=== PATIENT | female | born 1995 | race Caucasian/White ===

== ENCOUNTER 2016-10-27 18:23 | Emergency (ER) | payer BC ==
--- NOTE | 2016-10-27 18:40 | ER Document Report ---
ED Medical Screen (RME) - General Stated Complaint: POSSIBLE OVERDOSE Mode of Arrival: Wheelchair Information source: Parent Notes: Patient reports taking Xanax tablets throughout the day. Patient states that she took like 7 tablets. Patient unsure of the milligrams. The prescription was the patient's or anyone in their family. Patient got the bottle from somebody at school. Mother states that patient wrote a suicide note stating that she was sorry and that she could not do this anymore. Patient does admit to suicidal ideation. hx: Spinal stenosis I have greeted and performed a rapid initial assessment of this patient. A comprehensive ED assessment and evaluation of the patient, analysis of test results and completion of the medical decision making process will be conducted by additional ED providers. Physical Exam - Vital signs Vitals: Temp Pulse Resp BP Pulse Ox 98.2 F 97 30 H 112/71 97 10/27/16 18:33 10/27/16 18:33 10/27/16 18:33 10/27/16 18:33 10/27/16 18:33 - General General appearance: Lethargic Notes: Patient able to answer questions, patient resting with eyes closed, answers for vocal stimuli Course - Vital Signs Vital signs: Temp Pulse Resp BP Pulse Ox 98.2 F 97 30 H 112/71 97 10/27/16 18:33 10/27/16 18:33 10/27/16 18:33 10/27/16 18:33 10/27/16 18:33
[2016-10-27 19:26] LABS: ABSOLUTE EOSINOPHILS # (AUTO) 0.1 10^3/uL (0.0-0.6); ABSOLUTE LYMPHOCYTES (AUTO) 2.7 10^3/uL (0.5-4.7); ABSOLUTE MONOCYTES (AUTO) 0.4 10^3/uL (0.1-1.4); ABSOLUTE NEUT (AUTO) 3.8 10^3/uL (1.7-8.2); BASOPHILS % (AUTO) 0.7 % (0-2); EOSINOPHILS % (AUTO) 1.2 % (0-6); HEMOGLOBIN 12.6 g/dL (12.0-15.5); HGB HCT DIFFERENCE -0.2; LYMPHOCYTES % (AUTO) 38.4 % (13-45); MEAN CORPUSCULAR HEMOGLOBIN 26.7 pg (27.0-33.4); MEAN CORPUSCULAR HGB CONC 33.2 g/dL (32.0-36.0); MEAN CORPUSCULAR VOLUME 80 fl (80-97); MONOCYTES % (AUTO) 5.5 % (3-13); RED BLOOD COUNT 4.73 10^6/uL (3.72-5.28); SEGMENTED NEUTROPHILS % (AUTO) 54.2 % (42-78); WHITE BLOOD COUNT 6.9 10^3/uL (4.0-10.5)
[2016-10-27 19:58] LABS: ALANINE AMINOTRANSFERASE 26 U/L (9-52); ALBUMIN 4.6 g/dL (3.5-5.0); ALCOHOL 18 mg/dL (NONE DETECTED); ALKALINE PHOSPHATASE 87 U/L (38-126); ANION GAP 12 (5-19); ASPARTATE AMINO TRANSFERASE 28 U/L (14-36); BLOOD UREA NITROGEN 8 mg/dL (7-20); CALCIUM 9.6 mg/dL (8.4-10.2); CARBON DIOXIDE 26 mmol/L (22-30); CHLORIDE 103 mmol/L (98-107); CREATININE RESULT 0.72 mg/dL (0.52-1.25); GLUCOSE 142 mg/dL (75-110); POTASSIUM 3.8 mmol/L (3.6-5.0); SODIUM 141.2 mmol/L (137-145); TOTAL PROTEIN 7.6 g/dL (6.3-8.2)
--- NOTE | 2016-10-27 20:36 | ER Document Report ---
ED General - General Chief Complaint: Possible Overdose Stated Complaint: POSSIBLE OVERDOSE Mode of Arrival: Wheelchair Notes: Patient is a 21-year-old female with past medical history of depression who presents after trying to kill herself with an overdose of 14 mg of Xanax. She took this in conjunction with alcohol. States that her intent was to kill herself and that she is still suicidal at this time. Notes progressively worsening depression, anxiety and suicidality for the last several months but notes that she's had near daily suicidal thoughts for the past 1 year. States stress from school has worsened her symptoms. Nothing improves her symptoms. States she used to be on Lexapro several years ago but is not feeling improved her symptoms so she self discontinued it. She is not currently follow with a primary care physician or psychiatrist. TRAVEL OUTSIDE OF THE [place] IN LAST 30 DAYS: No - Related Data Allergies/Adverse Reactions: Sulfa (Sulfonamide Antibiotics) Allergy (Verified 10/28/16 01:22) Past Medical History - General Information source: Parent - Social History Smoking Status: Never Smoker Frequency of alcohol use: Occasional Drug Abuse: Prescription drugs Lives with: Alone Family History: Reviewed & Not Pertinent Patient has suicidal ideation: Yes Patient has homicidal ideation: No Renal/ Medical History: Denies: Hx Peritoneal Dialysis Psychiatric Medical History: Reports: Hx Depression - Immunizations Hx Diphtheria, Pertussis, Tetanus Vaccination: Yes Review of Systems - Review of Systems Notes: Constitutional: Negative for fever. HENT: Negative for sore throat. Eyes: Negative for visual changes. Cardiovascular: Negative for chest pain. Respiratory: Negative for shortness of breath. Gastrointestinal: Negative for abdominal pain, vomiting or diarrhea. Genitourinary: Negative for dysuria. Musculoskeletal: Negative for back pain. Skin: Negative for rash. Neurological: Negative for headaches, weakness or numbness. 10 point ROS negative except as marked above and in HPI. Physical Exam - Vital signs Vitals: Temp Pulse Resp BP Pulse Ox 98.2 F 97 30 H 112/71 97 10/27/16 18:33 10/27/16 18:33 10/27/16 18:33 10/27/16 18:33 10/27/16 18:33 Interpretation: Tachypneic Notes: PHYSICAL EXAMINATION: GENERAL: Appears intoxicated but in no distress. HEAD: Atraumatic, normocephalic. EYES: Pupils equal round and reactive to light, extraocular movements intact, sclera anicteric, conjunctiva are normal. ENT: nares patent, oropharynx clear without exudates. Moist mucous membranes. NECK: Normal range of motion, supple without lymphadenopathy LUNGS: Breath sounds clear to auscultation bilaterally and equal. No wheezes rales or rhonchi. HEART: Regular rate and rhythm without murmurs ABDOMEN: Soft, nontender, normoactive bowel sounds. No guarding, no rebound. No masses appreciated. EXTREMITIES: Normal range of motion, no pitting or edema. No cyanosis. NEUROLOGICAL: No focal neurological deficits. Moves all extremities spontaneously and on command. PSYCH: Tearful, poor eye contact, expressing si SKIN: Warm, Dry, normal turgor, no rashes or lesions noted. Course - Re-evaluation Re-evalutation: 10/27/16 20:34 Patient presents after a suicide attempt with 14 mg of Xanax and alcohol. Her airway is patent, vitals within normal limits at time of arrival. No respiratory suppression at this time. I am very concerned about this patient's baseline psychiatric condition as she admits to near daily suicidal ideation and has had 2 attempts in the past 10 days including a temperature she tried to strangle herself with a belt last week. I'm also concerned that she does not have any outpatient management, is not seeing a psychiatrist and is not any psychiatric medications. She acquired the Xanax from somebody else and was not actually prescribed this medication. Given the degree of her increasingly severe suicide attempt, untreated underlying depression, and the severity of her temp today I placed on involuntary commitment and feel she will likely need inpatient placement. Her medical screening laboratories and exam are otherwise unremarkable. Poison control contacted. She was placed on a radiation monitor. 10/28/16 03:00 Patient has remained asymptomatic beyond mild sedation. No distress. Medically cleared at this time. - Vital Signs Vital signs: Temp Pulse Resp BP Pulse Ox 98.2 F 97 30 H 112/71 97 10/27/16 18:33 10/27/16 18:33 10/27/16 18:33 10/27/16 18:33 10/27/16 18:33 - Laboratory Result Diagrams: 10/27/16 19:00 10/27/16 19:00 Laboratory results interpreted by me: 10/27/16 10/27/16 19:00 19:00 MCH 26.7 L Glucose 142 H Salicylates < 1.0 L Acetaminophen < 10 L - EKG Interpretation by Me Additional EKG results interpreted by me: 10/27/16 20:36 Normal sinus rhythm. Rate 97. No ST elevations or depressions. QTC 442. Discharge - Discharge Clinical Impression: Attempted suicide Benzodiazepine overdose Qualifiers: Encounter type: initial encounter Injury intent: intentional self-harm Qualified Code(s): T42.4X2A - Poisoning by benzodiazepines, intentional self- harm, initial encounter Condition: Fair Disposition: PSYCH HOSP/UNIT
[2016-10-27 23:18] LABS: APPEARANCE,URINE CLEAR; BILIRUBIN,URINE NEGATIVE (NEGATIVE); GLUCOSE, URINE NEGATIVE (NEGATIVE); KETONES,URINE NEGATIVE (NEGATIVE); LEUKOCYTE ESTERASE,URINE NEGATIVE (NEGATIVE); NITRITE,URINE NEGATIVE (NEGATIVE); PROTEIN,URINE NEGATIVE (NEGATIVE); URINE SPECIFIC GRAVITY 1.006; UROBILINOGEN,URINE NEGATIVE mg/dL (<2.0)
[2016-10-27 23:29] LABS: URINE BARBITURATES SCREEN NEGATIVE; URINE METHADONE SCREEN NEGATIVE; URINE OPIATES LOW NEGATIVE; URINE PHENCYCLIDINE SCREEN NEGATIVE
--- NOTE | 2016-10-28 08:02 | EKG REPORT ---
SEVERITY:- NORMAL ECG - SINUS RHYTHM : Confirmed by: Ramses Rodarte MD 28-Oct-2016 08:01:50
[2016-10-28 08:21] VITALS: BP 110/70
--- NOTE | 2016-10-28 10:19 | ER Document Report ---
Doctor's Note Notes: 10/28/16 10:17 Rounds: Chart reviewed and patient interviewed. Patient here for evaluation of suicidal thoughts. Patient has a history of depression and anxiety. Yesterday , took some Xanax pills as well as drinking alcohol. Still feels suicidal this morning. Vital signs are all normal. Lab studies show a blood alcohol of 18 and a drug screen positive for benzos. Patient's only medical condition is spinal stenosis which causes chronic back pain and for which she has been recommended surgery, but she does not have insurance coverage for that procedure. Patient appears to be medically stable for transfer or discharge. Ricardo Penaloza M.D.
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
== END 2016-10-28 14:05 ==
LOC: ER 18:23
DX: T42.4X2A Poisoning by benzodiazepines, intentional self-harm, initial encounter (principal); Z79.899 Other long term (current) drug therapy; X83.8XXA Intentional self-harm by other specified means, initial encounter
CPT/HCPCS: 36415; 80053; 80307; 81001; 84703; 85025; 93005; 93010; 99285

== ENCOUNTER 2017-11-29 18:27 | Emergency (ER) | payer BC ==
[2017-11-29 18:34] VITALS: BP 139/79
--- NOTE | 2017-11-29 20:02 | ER Document Report ---
ED Medical Screen (RME) - General Chief Complaint: Rectal Pain Stated Complaint: RECTUM ISSUES Time Seen by Provider: 11/29/17 20:01 Notes: Patient reports several days of rectal pain and bleeding. No significant lightheadedness or dizziness. She denies any known trauma. No recent pregnancies. TRAVEL OUTSIDE OF THE [place] IN LAST 30 DAYS: No - Related Data Allergies/Adverse Reactions: Sulfa (Sulfonamide Antibiotics) Allergy (Verified 11/29/17 18:29) Past Medical History Renal/ Medical History: Denies: Hx Peritoneal Dialysis Psychiatric Medical History: Reports: Hx Depression - Immunizations Hx Diphtheria, Pertussis, Tetanus Vaccination: Yes Physical Exam - Vital signs Vitals: Temp Pulse Resp BP Pulse Ox 98.6 F 105 H 17 139/79 H 100 11/29/17 18:33 11/29/17 18:33 11/29/17 18:33 11/29/17 18:33 11/29/17 18:33 Course - Vital Signs Vital signs: Temp Pulse Resp BP Pulse Ox 98.6 F 105 H 17 139/79 H 100 11/29/17 18:33 11/29/17 18:33 11/29/17 18:33 11/29/17 18:33 11/29/17 18:33
[2017-11-29 20:59] LABS: ABSOLUTE BASOPHILS # (AUTO) 0.1 10^3/uL (0.0-0.2); ABSOLUTE EOSINOPHILS # (AUTO) 0.1 10^3/uL (0.0-0.6); ABSOLUTE LYMPHOCYTES (AUTO) 3.5 10^3/uL (0.5-4.7); ABSOLUTE MONOCYTES (AUTO) 0.5 10^3/uL (0.1-1.4); ABSOLUTE NEUT (AUTO) 7.7 10^3/uL (1.7-8.2); BASOPHILS % (AUTO) 0.4 % (0-2); EOSINOPHILS % (AUTO) 0.6 % (0-6); HEMATOCRIT 33.1 % (36.0-47.0); HEMOGLOBIN 10.4 g/dL (12.0-15.5); LYMPHOCYTES % (AUTO) 29.4 % (13-45); MEAN CORPUSCULAR HEMOGLOBIN 19.6 pg (27.0-33.4); MEAN CORPUSCULAR HGB CONC 31.4 g/dL (32.0-36.0); MEAN CORPUSCULAR VOLUME 62 fl (80-97); MONOCYTES % (AUTO) 4.6 % (3-13); PLATELET COUNT 462 10^3/uL (150-450); RED BLOOD COUNT 5.32 10^6/uL (3.72-5.28); RED CELL DISTRIBUTION WIDTH 21.5 % (11.5-14.0); TOTAL CELLS COUNTED % (AUTO) 100 %; WHITE BLOOD COUNT 11.8 10^3/uL (4.0-10.5)
[2017-11-29 21:16] LABS: APPEARANCE,URINE CLOUDY; BILIRUBIN,URINE NEGATIVE (NEGATIVE); COLOR,URINE YELLOW; GLUCOSE, URINE NEGATIVE (NEGATIVE); KETONES,URINE NEGATIVE (NEGATIVE); LEUKOCYTE ESTERASE,URINE TRACE (NEGATIVE); NITRITE,URINE POSITIVE (NEGATIVE); PROTEIN,URINE NEGATIVE (NEGATIVE); URINE SPECIFIC GRAVITY 1.025; UROBILINOGEN,URINE NEGATIVE mg/dL (<2.0)
[2017-11-29 21:21] LABS: ANISOCYTOSIS 2+; HYPOCHROMASIA 1+; OVALOCYTES SLIGHT; PLATELET COMMENT INCREASED; POIKILOCYTOSIS 1+; TOXIC GRANULATION SLIGHT
[2017-11-29] MEDS ORDERED: CIPROFLOXACIN HCL 500 MG TABLET PO ONE (22:21)
--- NOTE | 2017-11-29 22:27 | ER Document Report ---
ED General - General Chief Complaint: Rectal Pain Stated Complaint: RECTUM ISSUES Time Seen by Provider: 11/29/17 20:01 Mode of Arrival: Ambulatory Information source: Patient TRAVEL OUTSIDE OF THE [place] IN LAST 30 DAYS: No - HPI Notes: Patient is a 37-year-old female history of chronic anemia related to heavy menstrual cycle presents to emergency department with report of a 6 month history of intermittent episodes of rectal pain with bleeding occurring with bowel movements. The patient reports she has a bowel movement approximately every other day, and usually they are somewhat hard. The patient denies any fever chills or abdominal pain. The patient reports no nausea or vomiting. Patient denies any rectal intercourse. Patient states her last menstrual cycle was approximately 2 months ago. - Related Data Allergies/Adverse Reactions: Sulfa (Sulfonamide Antibiotics) Allergy (Verified 11/29/17 18:29) Past Medical History - General Information source: Patient - Social History Smoking Status: Never Smoker Frequency of alcohol use: None Drug Abuse: None Lives with: Family Family History: Reviewed & Not Pertinent Patient has suicidal ideation: No Patient has homicidal ideation: No Renal/ Medical History: Denies: Hx Peritoneal Dialysis Psychiatric Medical History: Reports: Hx Depression - Immunizations Hx Diphtheria, Pertussis, Tetanus Vaccination: Yes Review of Systems - Review of Systems Notes: REVIEW OF SYSTEMS: CONSTITUTIONAL : Denies fever, chills, or sweats. Denies recent illness. EENT: Denies eye, ear, throat, or mouth pain or symptoms. Denies nasal or sinus congestion or discharge. Denies throat, tongue, or mouth swelling or difficulty swallowing. CARDIOVASCULAR: Denies chest pain. Denies palpitations or racing or irregular heart beat. Denies ankle edema. RESPIRATORY: Denies cough, cold, or chest congestion. Denies shortness of breath, difficulty breathing, or wheezing. GASTROINTESTINAL: Denies abdominal pain or distention. Denies nausea, vomiting , or diarrhea. Denies blood in vomitus. Denies black, tarry stools. Patient reports no dark red blood per rectum or clots, states she only has bright red blood at the end of a hard bowel movement associated with rectal pain. GENITOURINARY: Denies difficulty urinating, painful urination, burning, frequency, blood in urine, or discharge. FEMALE GENITOURINARY: Denies vaginal bleeding, heavy or abnormal periods, irregular periods. Denies vaginal discharge or odor. MUSCULOSKELETAL: Denies back or neck pain or stiffness. Denies joint pain or swelling. SKIN: Denies rash, lesions or sores. HEMATOLOGIC : Denies easy bruising or bleeding. LYMPHATIC: Denies swollen, enlarged glands. NEUROLOGICAL: Denies confusion or altered mental status. Denies passing out or loss of consciousness. Denies dizziness or lightheadedness. Denies headache. Denies weakness or paralysis or loss of use of either side. Denies problems with gait or speech. Denies sensory loss, numbness, or tingling. Denies seizures. PSYCHIATRIC: Denies anxiety or stress. Denies depression, suicidal ideation, or homicidal ideation. ALL OTHER SYSTEMS REVIEWED AND NEGATIVE. Dictation was performed using [employer] voice recognition software Physical Exam - Vital signs Vitals: Temp Pulse Resp BP Pulse Ox 98.6 F 105 H 17 139/79 H 100 11/29/17 18:33 11/29/17 18:33 11/29/17 18:33 11/29/17 18:33 11/29/17 18:33 - Notes Notes: PHYSICAL EXAMINATION: GENERAL: Well-appearing, well-nourished and in no acute distress. HEAD: Atraumatic, normocephalic. EYES: Pupils equal round and reactive to light, extraocular movements intact, conjunctiva are normal. ENT: Nares patent, oropharynx clear without exudates. Moist mucous membranes. NECK: Normal range of motion, supple without lymphadenopathy LUNGS: Breath sounds clear to auscultation bilaterally and equal. No wheezes rales or rhonchi. HEART: Regular rate and rhythm without murmurs ABDOMEN: Soft, nontender, nondistended abdomen. No guarding, no rebound. No masses appreciated. Female : Patient has a very small hemorrhoid appreciated at 12:00 that is not irritated, but the patient has a fissure at 6:00. There is no active bleeding noted. No other abnormality appreciated. The stool noted otherwise was without evidence for blood. Musculoskeletal: Normal range of motion, no pitting or edema. No cyanosis. NEUROLOGICAL: Cranial nerves grossly intact. Normal speech, normal gait. Normal sensory, motor exams PSYCH: Normal mood, normal affect. SKIN: Warm, Dry, normal turgor, no rashes or lesions noted. Course - Re-evaluation Re-evalutation: 11/29/17 22:25 Urinalysis showed a urinary tract infection. A urine culture was taken and the patient was given Cipro. we will treat the patient for constipation and for urinary tract infection. Patient will drink plenty fluids. Patient reports her anemia is chronic and she was told to take supplemental iron for this. - Vital Signs Vital signs: Temp Pulse Resp BP Pulse Ox 98.6 F 105 H 17 139/79 H 100 11/29/17 18:33 11/29/17 18:33 11/29/17 18:33 11/29/17 18:33 11/29/17 18:33 - Laboratory Result Diagrams: 11/29/17 20:30 Laboratory results interpreted by me: 11/29/17 11/29/17 20:30 20:30 WBC 11.8 H RBC 5.32 H Hgb 10.4 L Hct 33.1 L MCV 62 L MCH 19.6 L MCHC 31.4 L RDW 21.5 H Plt Count 462 H Urine Blood MODERATE H Urine Nitrite POSITIVE H Ur Leukocyte Esterase TRACE H Discharge - Discharge Clinical Impression: Fissure in ano Constipation Qualifiers: Constipation type: slow transit constipation Qualified Code(s): K59.01 - Slow transit constipation Urinary tract infection Qualifiers: Urinary tract infection type: acute cystitis Hematuria presence: without hematuria Qualified Code(s): N30.00 - Acute cystitis without hematuria Anemia Qualifiers: Anemia type: unspecified type Qualified Code(s): D64.9 - Anemia, unspecified Condition: Stable Disposition: HOME, SELF-CARE Instructions: Urinary Tract Infection ([facility]), Anal Fissure ([facility]), Anemia, Iron Deficiency ([facility]) Additional Instructions: Take supplemental iron. Drink plenty fluids. Add in MiraLAX to assist with constipation. Follow-up with surgery in the event of continued bleeding despite conservative management. Wash the area or take a bath after a bowel movement. Apply Anusol HC cream to the area to assist with healing. Prescriptions: Ciprofloxacin HCl [Cipro 250 mg Tablet] 1 tab PO BID #14 tab Hydrocortisone [Anusol-Hc] 30 gm TP BIDP PRN #30 cream..g. PRN Reason: Polyethylene Glycol 3350 [Miralax] 1 cap PO DAILY #527 powder Referrals: GIOVANY GUTIÉRREZ MD [ACTIVE STAFF] - Follow up as needed
== END 2017-11-29 22:30 | disposition home or self-care (01) ==
LOC: ER 18:27
DX: K60.2 Anal fissure, unspecified (principal); K59.01 Slow transit constipation; N30.00 Acute cystitis without hematuria; D64.9 Anemia, unspecified; K62.89 Other specified diseases of anus and rectum
CPT/HCPCS: 36415; 81001; 81025; 85025; 87086; 87088; 87186; 99283

== ENCOUNTER 2018-02-24 06:42 | Emergency (ER) | payer BC ==
[2018-02-24 06:54] VITALS: BP 130/87
[2018-02-24] MEDS ORDERED: ACETAMINOPHEN 325 MG TABLET PO ONE (07:26)
[2018-02-24] MEDS ORDERED: LIDOCAINE 4%/TETRACAINE 0.5%/EPI 0.18% 5 ML TOPICAL SOLN TOP ONE (07:26)
--- NOTE | 2018-02-24 08:11 | ER Document Report ---
HPI - HPI Patient complains to provider of: abscess Onset: Other - 5 days Onset/Duration: Gradual Pain Level: 3 Context: 22 yo female with recurrent pilonidal abscess over the past 5 days. No fever. Associated Symptoms: None Exacerbated by: Movement Relieved by: Denies Similar symptoms previously: Yes Recently seen / treated by doctor: No - ROS ROS below otherwise negative: Yes Systems Reviewed and Negative: Yes All other systems reviewed and negative - DERM Skin Color: Normal Past Medical History - General Information source: Patient - Social History Smoking Status: Never Smoker Frequency of alcohol use: None Drug Abuse: None Lives with: Family Family History: Reviewed & Not Pertinent Patient has suicidal ideation: No Patient has homicidal ideation: No Renal/ Medical History: Denies: Hx Peritoneal Dialysis Psychiatric Medical History: Reports: Hx Depression Surgical Hx: Negative - Immunizations Hx Diphtheria, Pertussis, Tetanus Vaccination: Yes Vertical Provider Document - CONSTITUTIONAL Agree With Documented VS: Yes Exam Limitations: No Limitations General Appearance: No Apparent Distress - INFECTION CONTROL TRAVEL OUTSIDE OF THE [place] IN LAST 30 DAYS: No - HEENT HEENT: Normocephalic - NECK Neck: Supple - MUSCULOSKELETAL/EXTREMETIES Musculoskeletal/Extremeties: MAEW - NEURO Level of Consciousness: Awake - DERM Integumentary: Abscess - pilondial abscess.flucuant Course - Vital Signs Vital signs: Temp Pulse Resp BP Pulse Ox 98.5 F 113 H 18 130/87 H 98 02/24/18 06:52 02/24/18 06:52 02/24/18 06:52 02/24/18 06:52 02/24/18 06:52 Procedures - Incision and Drainage Buttock Time completed: 08:40 Type: Simple Anesthetic type: 1% Lidocaine mL's of anesthetic: 4 Blade size: 11 I&D procedure: Betadine prep applied Incision Method: Incision made by scalpel Amount/type of drainage: Large pus Discharge - Discharge Clinical Impression: Pilonidal abscess I&D Condition: Good Disposition: HOME, SELF-CARE Instructions: Abscess ([facility]), Acetaminophen, Cephalexin ([facility]), Ibuprofen ( General) ([facility]), Post Incision and Drainage Additional Instructions: Keep the dressing on for 2 days and then remove. After remove the dressing shower and wash vigorously with washcloth and antibacterial soap Dry dressing Return for any signs of worsening pain infection swelling fever. See the general surgeon if you decide to have the area excised Prescriptions: Ibuprofen [Motrin 800 mg Tablet] 800 mg PO Q8HP PRN #30 tablet PRN Reason: Cephalexin Monohydrate [Keflex 500 mg Capsule] 500 mg PO QID #28 capsule Referrals: PAZ POOL MD [ACTIVE STAFF] - Follow up as needed
[2018-02-24] MEDS ORDERED: CEPHALEXIN 500 MG CAPSULE PO ONE (08:40)
== END 2018-02-24 08:53 | disposition home or self-care (01) ==
LOC: ER 06:42
PROC: 0H98XZZ Drainage of Buttock Skin, External Approach (ICD-10-PCS; principal; 2018-02-24)
DX: L05.01 Pilonidal cyst with abscess (principal)
CPT/HCPCS: 99283; 10080; J3490